=== PATIENT | male | born 1940 | race Caucasian/White ===

== ENCOUNTER 2019-10-12 12:12 | Day surgery (SDC) | payer MEDICARE, OTHER ==
[~2019-10-12] VITALS: Ht 180.3 cm; Wt 90.1 kg
[~2019-10-12 12:12] MED LIST: ASCO500 PO; ATOR20 PO; Aspirin EC81 MG PO; DOCU100 PO; FAMO20 PO; FEBU40TA PO; FERSU300 PO; Fish Oil 10001000 MG PO; HYDSUL200 PO; LEVSOD50 PO; LEVSOD75 PO; LOSA25 PO; MIRALAX17 GM PO; NIFE60ER PO; Vitamin D2000 UNIT PO
== END 2019-10-12 14:49 | disposition home or self-care (01) ==
LOC: ORSCSDS 12:12
PROVIDERS: Internal Medicine Gastroenterology
PROC: 0DBN8ZX Excision of Sigmoid Colon, Via Natural or Artificial Opening Endoscopic, Diagnostic (ICD-10-PCS; principal; 2019-10-12 13:45)
PROC: 0DBK8ZX Excision of Ascending Colon, Via Natural or Artificial Opening Endoscopic, Diagnostic (ICD-10-PCS; principal; 2019-10-12 13:45)
DX: Z12.11 Encounter for screening for malignant neoplasm of colon (principal); Z86.010 Personal history of colon polyps; D12.5 Benign neoplasm of sigmoid colon; D12.2 Benign neoplasm of ascending colon; K57.30 Diverticulosis of large intestine without perforation or abscess without bleeding; D64.9 Anemia, unspecified; I12.9 Hypertensive chronic kidney disease with stage 1 through stage 4 chronic kidney disease, or unspecified chronic kidney disease; N18.3 Chronic kidney disease, stage 3 (moderate); Z79.82 Long term (current) use of aspirin; Z79.899 Other long term (current) drug therapy
CPT/HCPCS: 88305; J2704; J7120

== ENCOUNTER → 2019-12-11 | Outpatient (CLI) | payer MEDICARE, OTHER | END | disposition home or self-care (01) | LOC: LAB SHORT 09:18 → LAB EV 09:18 | DX: N39.0 Urinary tract infection, site not specified (principal) | CPT/HCPCS: 87077; 87086; 87186 ==

== ENCOUNTER 2020-02-12 06:56 | Day surgery (SDC) | payer MEDICARE, OTHER ==
[~2020-02-12] VITALS: Ht 180.3 cm; Wt 89.4 kg
--- NOTE | 2020-02-12 07:56 | NUR ---
History, Chart, Medications and Allergies reviewed before start of procedure. Patient confirms NPO status and agrees with scheduled surgery.
--- NOTE | 2020-02-12 07:59 | NUR ---
PATIENT STATES HE LEFT HIS HEARING AIDS AT HOME.
--- NOTE | 2020-02-12 12:49 | NUR ---
PT DRESSINGS TIMES 3 TO ABDOMEN CDI. PT SAT UP IN [facility] [place] EWITH MINIMAL HELP AND PROVIDED FOOD AND FLUID, PAIN PILL FOR RIDE HOME.
--- NOTE | 2020-02-12 13:19 | NUR ---
Patient up to Ambulate independently. Gait steady. Dressing to procedure site clean, dry, intact with no visible drainage, swelling, erythema or bruising noted. Discharge instructions reviewed with patient. Patient verbalizes understanding. Copy given to patient to take home. Patient States Post-Procedure ride home has been arranged. Discharged via wheelchair to private car for ride home. ALL BELONINGS RETURNED TO PATIENT. SIGNED FOR RIDE HOME.
== END 2020-02-12 22:41 | disposition home or self-care (01) ==
LOC: ORSCMMR 06:56 → ORD 08:30 → ORSCMMR 22:41
PROVIDERS: Surgery
PROC: 0YU54JZ Supplement Right Inguinal Region with Synthetic Substitute, Percutaneous Endoscopic Approach (ICD-10-PCS; principal; 2020-02-12 08:30)
PROC: 8E0W4CZ Robotic Assisted Procedure of Trunk Region, Percutaneous Endoscopic Approach (ICD-10-PCS; principal; 2020-02-12 08:30)
DX: K40.90 Unilateral inguinal hernia, without obstruction or gangrene, not specified as recurrent (principal); I10 Essential (primary) hypertension; E78.5 Hyperlipidemia, unspecified; N18.3 Chronic kidney disease, stage 3 (moderate); E03.9 Hypothyroidism, unspecified; Z79.899 Other long term (current) drug therapy; Z79.82 Long term (current) use of aspirin
CPT/HCPCS: 49650; S2900; A9270-GY; C1781; J0690; J1100; J2405; J2704; J3010; J7120

== ENCOUNTER 2022-10-26 22:04 | Emergency (ER) | payer MEDICARE, BC ==
[~2022-10-26] VITALS: Ht 180.3 cm; Wt 87.1 kg
[2022-10-26 22:26] LABS: BASOPHILS ABSOLUTE AUTO 0.03 K/mm3 (0.00-0.23); BASOPHILS PERCENT AUTO 1 % (0-2); EOSINOPHILS ABSOLUTE AUTO 0.13 K/mm3 (0.00-0.68); EOSINOPHILS PERCENT AUTO 3 % (0-6); Hemoglobin 13.2 g/dL (13.5-17.5); IMMATURE GRAN ABSOLUTE AUTO 0.01 K/mm3 (0.00-0.10); IMMATURE GRAN PERCENT AUTO 0 % (0-1); LYMPHOCYTES ABSOLUTE AUTO 0.72 K/mm3 (0.84-5.20); LYMPHOCYTES PERCENT AUTO 15 % (21-46); MONOCYTES ABSOLUTE AUTO 0.53 K/mm3 (0.16-1.47); MONOCYTES PERCENT AUTO 11 % (4-13); Mean Corpuscular HGB 28.7 pg (26.0-34.0); Mean Corpuscular HGB Conc 33.8 g/dL (31.5-36.5); Mean Corpuscular Volume 85 fL (80-100); Mean Platelet Volume 11.6 fL (9.1-12.4); NEUTROPHILS ABSOLUTE AUTO 3.34 K/mm3 (1.96-9.15); NEUTROPHILS PERCENT AUTO 70 % (41-73); Platelet Count 134 K/mm3 (150-400); RDW Coefficient Variation 13.7 % (11.7-14.2); RDW Standard Deviation 42.7 fL (35.1-46.3); White Blood Cell Count 4.76 K/mm3 (4.00-11.30)
[2022-10-26 22:45] LABS: Albumin, Blood 3.5 g/dL (3.4-5.0); Albumin/Globulin Ratio 0.8 (0.8-1.8); Bilirubin, Total 0.6 mg/dL (0.1-1.0); Bun/Creatinine Ratio 16.7 (12.0-20.0); Calcium, Blood 9.4 mg/dL (8.5-10.1); Creatinine, Blood 1.92 mg/dL (0.60-1.20); Globulin, Blood 4.3 g/dL (2.2-4.0); Potassium, Blood 3.7 mmol/L (3.5-5.5); Total Protein, Blood 7.8 g/dL (6.4-8.2)
== END 2022-10-27 02:58 | disposition short-term general hospital (02) ==
LOC: ER 22:04
PROVIDERS: Student in an Organized Health Care Education/Training Program
DX: K44.9 Diaphragmatic hernia without obstruction or gangrene (principal); K56.2 Volvulus; Z79.899 Other long term (current) drug therapy; Z79.890 Hormone replacement therapy; Z79.82 Long term (current) use of aspirin; Z87.891 Personal history of nicotine dependence
CPT/HCPCS: 36415; 71045; 71275; 74175; 80053; 83880; 84484; 85025; 93005; 93010; 96374-59; 96375-59; 99285-25; A9270; J1170; J2270; J2405; J2550; Q9967

== ENCOUNTER 2023-02-12 07:00 | Day surgery (SDC) | payer MEDICARE, BC ==
[~2023-02-12] VITALS: Ht 180.3 cm; Wt 82.0 kg
[2023-02-12 07:35] VITALS: BP 150/99
[2023-02-12 09:30] VITALS: BP 149/105
--- NOTE | 2023-02-12 09:33 | NUR ---
pt arrives back to hc s/p ivc filter removal. pt alert and oriented, up in recliner, vss. RIJ site wnl, no hematoma, no bleeding. manual pressure till hemostasis. cloth dot in place. pt. called to update. snack provided for patient.
[2023-02-12 09:45] VITALS: BP 161/108
[2023-02-12 10:00] VITALS: BP 109/81
[2023-02-12 10:30] VITALS: BP 107/90
--- NOTE | 2023-02-12 10:36 | NUR ---
Site oozing, Pressure held to site, SABRINA Woodward tech in to place omer and tegaderm to location. no crepitus noted, not hematoma at this time.
[2023-02-12 11:30] VITALS: BP 133/108
--- NOTE | 2023-02-12 12:15 | NUR ---
ASSISTED PT TO GET DRESSED AND AMBULATE AROUND ROOM. SITE REMAINS STABLE. DISCHARGE INSTRUCTIONS REVIEWED IN DETAIL. PT. HAD NO FURTHER QUESTIONS. IV REMOVED AND ALL BELONGINGS WITH PT.
--- NOTE | 2023-02-12 12:30 | NUR ---
PT TAKEN VIA WHEEL CHAIR TO EXIT, PT JUNIOR PICKED PT UP. SITE STABLE UPON DEPARTERE.
== END 2023-02-12 11:45 | disposition home or self-care (01) ==
LOC: MHTC 07:00
DX: Z45.89 Encounter for adjustment and management of other implanted devices (principal); I82.4Y3 Acute embolism and thrombosis of unspecified deep veins of proximal lower extremity, bilateral; I82.563 Chronic embolism and thrombosis of calf muscular vein, bilateral; I71.23 Aneurysm of the descending thoracic aorta, without rupture; I72.3 Aneurysm of iliac artery; I10 Essential (primary) hypertension; Z95.828 Presence of other vascular implants and grafts; Z79.82 Long term (current) use of aspirin
CPT/HCPCS: 37193; 76937; 99152; C1769; C1773; C1894; J1644; J2250; J2405; J3010; J7030; J7040

== ENCOUNTER → 2023-03-28 | Outpatient (CLI) | payer MEDICARE, BC | LOC: LAB 11:10 → LAB SHORT 11:10 | DX: C49.0 Malignant neoplasm of connective and soft tissue of head, face and neck (principal); D04.62 Carcinoma in situ of skin of left upper limb, including shoulder | CPT/HCPCS: 88305 ==

== ENCOUNTER → 2023-04-09 | Outpatient (CLI) | payer MEDICARE, BC | LOC: PLD 15:09 → LAB SHORT 15:09 | DX: C44.222 Squamous cell carcinoma of skin of right ear and external auricular canal (principal) | CPT/HCPCS: 88305 ==

== ENCOUNTER → 2023-06-18 | Outpatient (CLI) | payer MEDICARE, BC | END | disposition home or self-care (01) | LOC: PLD 08:07 → LAB SHORT 08:07 | DX: D48.5 Neoplasm of uncertain behavior of skin (principal) | CPT/HCPCS: 88305 ==

== ENCOUNTER 2023-08-04 16:10 | Inpatient (IN) | payer MEDICARE, BC ==
[~2023-08-04] VITALS: Ht 180.3 cm; Wt 85.9 kg
[2023-08-04 16:48] LABS: BASOPHILS ABSOLUTE AUTO 0.03 K/mm3 (0.00-0.23); BASOPHILS PERCENT AUTO 0 % (0-2); EOSINOPHILS ABSOLUTE AUTO 0.01 K/mm3 (0.00-0.68); EOSINOPHILS PERCENT AUTO 0 % (0-6); Hematocrit 35.1 % (37.0-53.0); Hemoglobin 11.7 g/dL (13.5-17.5); IMMATURE GRAN ABSOLUTE AUTO 0.06 K/mm3 (0.00-0.10); IMMATURE GRAN PERCENT AUTO 1 % (0-1); LYMPHOCYTES ABSOLUTE AUTO 0.49 K/mm3 (0.84-5.20); LYMPHOCYTES PERCENT AUTO 5 % (21-46); MONOCYTES PERCENT AUTO 13 % (4-13); Mean Corpuscular HGB 28.6 pg (26.0-34.0); Mean Corpuscular HGB Conc 33.3 g/dL (31.5-36.5); Mean Corpuscular Volume 86 fL (80-100); NEUTROPHILS PERCENT AUTO 81 % (41-73); Platelet Count 118 K/mm3 (150-400); RDW Coefficient Variation 14.3 % (11.7-14.2); RDW Standard Deviation 44.3 fL (35.1-46.3); Red Blood Cell Count 4.09 M/mm3 (4.30-5.90); White Blood Cell Count 10.69 K/mm3 (4.00-11.30)
[2023-08-04 17:16] LABS: Albumin, Blood 2.7 g/dL (3.4-5.0); Albumin/Globulin Ratio 0.6 (0.8-1.8); Bilirubin, Total 1.2 mg/dL (0.1-1.0); Bun/Creatinine Ratio 21.5 (12.0-20.0); Creatinine, Blood 2.51 mg/dL (0.60-1.20); Globulin, Blood 4.7 g/dL (2.2-4.0); Potassium, Blood 4.3 mmol/L (3.5-5.5); Total Protein, Blood 7.4 g/dL (6.4-8.2)
[2023-08-04 17:22] LABS: Base Excess Venous -0.3 mmol/L; Bicarbonate Venous 24.4 mmol/L (24.0-30.0); PCO2 Venous 32.1 mmHg (38-42); pH Blood Venous 7.47 (7.34-7.37)
[2023-08-04 18:04] LABS: Influenza A, PCR NEGATIVE (NEGATIVE); Influenza B, PCR NEGATIVE (NEGATIVE); Resp Syncytial Virus, PCR NEGATIVE (NEGATIVE); SARS-Cov-2 (COVID-19) PCR, MMC NEGATIVE (NEGATIVE)
[2023-08-04] MEDS ORDERED: EUTHYROX50 MC1 PO (20:47)
[2023-08-04 21:06] LABS: Thyroid Stimulating Hormone 3.63 uIU/mL (0.360-4.800)
[2023-08-04 21:59] VITALS: BP 113/79
[2023-08-04] MEDS ORDERED: PANT20 PO (22:03)
[2023-08-04 22:55] VITALS: BP 124/75
--- NOTE | 2023-08-04 23:16 | NUR ---
ARRIVAL TO UNIT AFTER RECEIVING REPORT FROM CHARITO RN IN ED, PATIENT ARRIVED TO UNIT VIA GURNEY AT APPROX 2140. PATIENT ABLE TO STAND TO TRANSFER TO BED WITH MINIMAL ASSIST. IS ALERT AND ORIENTED X4. COOPERATIVE WITH CARE. ABLE TO COMMUNICATE NEEDS. AMBULATED TO BEDSIDE COMMODE FOR BM X1. WAS LARGE, LOOSE. ONCE BACK IN BED, PATIENT EXPERIENCED X1 EXTRA LARGE, LOOSE INCONTINENT BM. BEDBATH, LINEN CHANGE PERFORMED. ATTENDS PLACED. STOOL SAMPLE COLLECTED PER PROTOCOL, AWAITING RESULTS. TELEMETRY SHOWING SINUS TACH 110's-120's. RATE INCREASE TO 120's-130's WITH MOBILITY. BP STABLE. DENIES CHEST PAIN OR PRESSURE. ARRIVED TO UNIT ON 12L VIA OXIMIZER, SATS 88-92%. PATIENT TACHYPNEIC, RR 25-35 AT REST. SWITCHED TO CPAP WITH 5L BLEED IN, SATS >92%. RR 20-30, CONTINUED SHORTNESS OF BREATH AT REST NOTED. PATIENT DID NOT VOID DURING BM's. RECEIVED IV BUMEX IN ED PRIOR TO ARRIVAL. BLADDER SCAN PERFORMED >500 NOTED. ENCOURAGED PATIENT TO VOID, ONLY ABLE TO VOID 100ML. STRAIGHT CATH PROCEDURE PERFORMED BY THIS RN. 400ML OUT. CALL LIGHT IN REACH. UPDATE GIVEN TO , JUNIOR, BY THIS RN.
[2023-08-05] VITALS (9 sets, daily range): BP systolic 104–131; BP diastolic 67–88
[2023-08-05 00:41] LABS: C DIFFICILE DNA NEGATIVE (Negative)
--- NOTE | 2023-08-05 04:52 | NUR ---
TELEMETRY CONTINUING TO SHOW SINUS TACH. PATIENT's HEART RATE BEGINNING TO TREND UP FROM 110's-120's TO 120's-130's, WITH INTERMITTENT EPISODES OF INCREASE TO 140's. ONE EPISODE OF INCREASE TO 150's. PATIENT ASYMPTOMATIC DURING INCREASES. DENIES CHEST PAIN OR PRESSURE. BP STABLE. THIS RN CONTACTED MD CAICEDO WITH UPDATE. RECEIVED ORDER FOR EKG. MD CAICEOD TO BEDSIDE TO REVIEW EKG. NO NEW ORDERS AT THIS TIME.
--- NOTE | 2023-08-05 05:35 | NUR ---
SHIFT SUMMARY PATIENT IS CURRENTLY SITTING UP IN CHAIR WATCHING TV. TELEMETRY CONTINUING TO SHOW SINUS TACH, SUSTAINING 120's WITH FREQUENT INCREASE TO 130's-150's. MD AWARE. SEE PREVIOUS NOTE. BP STABLE THROUGHOUT, SBP 120's. DENIES CHEST PAIN OR PRESSURE. ON CPAP THROUGHOUT SHIFT. IS CURRENTLY ON 5L VIA OXIMIZER, SATS >92%, WHILE IN CHAIR. TACHYPNEIC THROUGHOUT SHIFT, RR 30's. PATIENT ABLE TO VOID FOLLOWING STRAIGHT CATH PROCEDURE. USES URINAL WITH MINIMAL ASSIST. NO FURTHER LOOSE BM's SINCE ASSUMPTION OF CARE. CALL LIGHT IN REACH. WILL REPORT TO ONCOMING RN.
[2023-08-05 05:42] LABS: Bun/Creatinine Ratio 22.8 (12.0-20.0); Calcium, Blood 8.4 mg/dL (8.5-10.1); Creatinine, Blood 2.41 mg/dL (0.60-1.20)
--- NOTE | 2023-08-05 06:07 | NUR ---
THIS RN RECEIVED CALL FROM LAB AT APPROX 0603 FOR A CRITICAL TROPONIN [id number]. NO CHANGE IN PATIENT CONDITION ASSESSED. CONTINUING TO REPORT NO CHEST PAIN OR PRESSURE. MD DEXTER NOTIFIED. NO NEW ORDERS RECEIVED.
--- NOTE | 2023-08-05 13:08 | NUR ---
Upon receiving a referral for spiritual care, I visited the patient. He tells me about his medical problems and his frustrations that his spouse can't visit him today due to a faulty garage door. He also explains about his [employer] roverto. He attends [facility] in [place] and finds comfort and peace in his prayers. I listen empathically and provide a calming presence and prayer. Patient responded well and shows signs of an elevated mood. He welcomes me to return anytime that I can.
--- NOTE | 2023-08-05 16:21 | NUR ---
shift summary no acute changes this shift. Pt a&ox4, [place] sp02>90% on 6l oxymizer while awake. desats to mid 80's occasionally while sleeping. Pt noted to breath through mouth. Pt refuses to wear cpap. Tachypenic, see vitals. Telemetry shows sinus tach, hr 100's-120's mostly. Echo in room this am, see results. Pt used urinal to void, bumex given per emar. Pt up in chair for much of shift. denies pain. MD Sharpe in room this am to discuss plan. Pt had visitor this afternoon for a few hours. Call placed to [facility] for current records. Still awaiting fax. Call light in reach. Pt sleeping in room.
--- NOTE | 2023-08-05 21:23 | NUR ---
ASSUMPTION OF CARE AFTER RECEIVING REPORT FROM BRITTON OREILLY, THIS RN ASSUMED CARE AT APPROX 1915. PATIENT ALERT, SITTING UP IN BED WITH NASAL OXYMIZER IN PLACE. IS ALERT AND ORIENTED X4. COOPERATIVE WITH CARE. IS [place], USES BILATERAL HEARING AIDES. ABLE TO COMMUNICATE NEEDS EFFECTIVELY. RECEPTIVE TO EDUCATION. TELEMETRY SHOWING SINUS TACH 110's-120's AT REST. WITH NOTED RATE INCREASE TO 130's-140's WITH ACTIVITY. PATIENT IS ASYMPTOMATIC OF INCREASED RATE. REPORTS NO CHEST PAIN OR PRESSURE. BP STABLE. ON 8L VIA NASAL OXYMIZER, SATS >92% WHILE AWAKE. PATIENT DOES DESAT TO 88-92% WHILE SLEEPING. IS DECLINING THE USE OF CPAP. HEAD OF BED ELEVATED TO 45 DEGREES. TACHYPNEIC AT REST, RR 22-30. MILDLY ELEVATED TEMPERATURE 99.8. THIS RN ADMINISTERED PO TYLENOL FOR BOTH ELEVATED TEMPERATURE AND REPORTED LOWER BACK PAIN 2/10. EXTRA BLANKETS REMOVED. TEMPERATURE DECREASE TO 99.0. REPORTED RELIEF OF LOWER BACK PAIN, 1/. STRAIGHT CATH PROCEDURE PERFORMED BY BRITTON OREILLY PRIOR TO ASSUMPTION OF CARE FOR URINARY RETENTION. PATIENT VOIDING SMALL AMOUNTS AT A TIME, USES URINAL INDEPENDENTLY. WILL CONTINUE TO MONITOR FOR RETENTION. CALL LIGHT IN REACH.
[2023-08-06 02:20] VITALS: BP 120/81
[2023-08-06 04:27] LABS: BASOPHILS ABSOLUTE AUTO 0.03 K/mm3 (0.00-0.23); BASOPHILS PERCENT AUTO 0 % (0-2); EOSINOPHILS ABSOLUTE AUTO 0.07 K/mm3 (0.00-0.68); EOSINOPHILS PERCENT AUTO 1 % (0-6); Hematocrit 31.1 % (37.0-53.0); Hemoglobin 10.4 g/dL (13.5-17.5); IMMATURE GRAN ABSOLUTE AUTO 0.07 K/mm3 (0.00-0.10); IMMATURE GRAN PERCENT AUTO 1 % (0-1); LYMPHOCYTES ABSOLUTE AUTO 0.56 K/mm3 (0.84-5.20); LYMPHOCYTES PERCENT AUTO 6 % (21-46); MONOCYTES ABSOLUTE AUTO 1.11 K/mm3 (0.16-1.47); MONOCYTES PERCENT AUTO 12 % (4-13); Mean Corpuscular HGB 28.6 pg (26.0-34.0); Mean Corpuscular HGB Conc 33.4 g/dL (31.5-36.5); Mean Corpuscular Volume 85 fL (80-100); NEUTROPHILS ABSOLUTE AUTO 7.81 K/mm3 (1.96-9.15); NEUTROPHILS PERCENT AUTO 81 % (41-73); Platelet Count 124 K/mm3 (150-400); RDW Coefficient Variation 14.6 % (11.7-14.2); RDW Standard Deviation 45.1 fL (35.1-46.3); Red Blood Cell Count 3.64 M/mm3 (4.30-5.90); White Blood Cell Count 9.65 K/mm3 (4.00-11.30)
[2023-08-06 04:58] LABS: Bun/Creatinine Ratio 26.6 (12.0-20.0); Calcium, Blood 8.2 mg/dL (8.5-10.1); Creatinine, Blood 2.44 mg/dL (0.60-1.20); Potassium, Blood 3.8 mmol/L (3.5-5.5)
--- NOTE | 2023-08-06 04:59 | NUR ---
SHIFT SUMMARY NO ACUTE CHANGES SINCE PREVIOUS ASSUMPTION OF CARE NOTE. PATIENT SLEPT THROUGHOUT SHIFT, EASILY AROUSABLE TO VERBAL STIMULI. TELEMETRY SHOWING SINUS TACH 110's-120's WITH INTERMITTENT INCREASES TO 130's. BP STABLE. NOW ON 5L VIA NASAL OXYMIZER. SATS REMAIN 89-94% THROUGHOUT NIGHT WHILE SLEEPING WITHOUT CPAP. HEAD OF BED REMAINS ELEVATED. RR 22-26. REMAINS AFEBRILE FOLLOWING TYLENOL ADMINISTRATION FOR ELEVATED TEMPERATURE AT BEGINNING OF SHIFT. CONTINUING TO VOID SMALL AMOUNTS AT A TIME. BLADDER SCAN PERFORMED <400ML. NO BM THIS SHIFT. CALL LIGHT IN REACH. WILL REPORT TO ONCOMING RN.
--- NOTE | 2023-08-06 05:24 | NUR ---
AT APPROX 0520, THIS RN RECEIVED A CALL FROM LAB WITH A CRITICAL VALUE, TROPONIN [id number]. DISCUSSED LAB RESULT WITH MANAGER STRATEGIC ALLIANCESAFIA BECK MD NOT NOTIFIED IS TRENDING DOWN FROM PREVIOUS RESULTS.
[2023-08-06 05:25] LABS: Mean Platelet Volume 13.7 fL (9.1-12.4)
[2023-08-06 07:15] VITALS: BP 135/78
--- NOTE | 2023-08-06 07:18 | NUR ---
PHONE CALL TO DR. LOCKHART TO DISCUSS NEW AFIB. PER AGRICULTURAL RESEARCH TECHNOLOGIST AFIB STARTED AT APPROX 0615 THIS AM.
[2023-08-06 09:44] LABS: Percent Saturation 17.6 % (20.0-50.0)
[2023-08-06 11:56] VITALS: BP 134/86
[2023-08-06 16:00] VITALS: BP 132/87
--- NOTE | 2023-08-06 17:44 | NUR ---
SHIFT SUMMARY; ASSUMED CARE AT 0700. A/A/OX4. REPOSITIONS SELF ON BED, USING URNIAL AT BEDSIDE. SBA TO RECLINER CHAIR DURING SHIFT. SPOKE WITH DR. LOCKHART IN AM ABOUT NEW AFIB, SEE PREVIOUS NOTE. INTERMITANT AFIB DURNG SHIFT. COREG STARTED TODAY. VSS, O2 TITRATED DOWN TO 3L DURING SHIFT, MAINTAINING 02 SATS >94%. PLEASANT AND COOPERATIVE WITH CARE. WILL CONTINUE TOMONITOR AND TREAT UNTIL CHANGE OF SHIFT.
[2023-08-06 19:47] VITALS: BP 108/73
--- NOTE | 2023-08-06 20:45 | NUR ---
ASSUMPTION OF CARE AFTER RECEIVING REPORT FROM WING OREILLY, THIS RN ASSUMED CARE AT APPROX 1915. PATIENT ALERT, SITTING UP IN BED WATCHING TV. IS ALERT AND ORIENTED X4. IS [place]. ABLE TO COMMUNICATE NEEDS EFFECTIVELY. RECEPTIVE TO EDUCATION, ASKS QUESTIONS FREQUENTLY. TELEMETRY SHOWING SINUS WITH PVC's 90's-100's. DENIES CHEST PAIN OR PRESSURE. BP SOFT, SBP 100's-110's. MAP >65. IS CURRENTLY ON 2L VIA NASAL OXYMIZER, SATS 90-93%. PLAN TO SWITCH TO NASAL CANNULA IF TOLERATED, PATIENT DOES DESAT, 86-88%, WHILE SLEEPING. DECLINING USE OF CPAP. HEAD OF BED ELEVATED >30 DEGREES. TACHYPNEIC AT REST, RR 22-30. USES URINAL AT BEDSIDE INDEPENDENTLY. IS A SBA TO BSC OR CHAIR. IV ABX INFUSING PER EMAR. CALL LIGHT IN REACH.
[2023-08-07 00:13] VITALS: BP 116/88
[2023-08-07 02:38] VITALS: BP 114/86
[2023-08-07 04:01] LABS: BASOPHILS ABSOLUTE AUTO 0.03 K/mm3 (0.00-0.23); BASOPHILS PERCENT AUTO 0 % (0-2); EOSINOPHILS ABSOLUTE AUTO 0.09 K/mm3 (0.00-0.68); EOSINOPHILS PERCENT AUTO 1 % (0-6); Hematocrit 30.2 % (37.0-53.0); IMMATURE GRAN ABSOLUTE AUTO 0.05 K/mm3 (0.00-0.10); IMMATURE GRAN PERCENT AUTO 1 % (0-1); LYMPHOCYTES ABSOLUTE AUTO 0.56 K/mm3 (0.84-5.20); LYMPHOCYTES PERCENT AUTO 7 % (21-46); MONOCYTES PERCENT AUTO 12 % (4-13); Mean Corpuscular HGB 28.3 pg (26.0-34.0); Mean Corpuscular HGB Conc 33.1 g/dL (31.5-36.5); Mean Corpuscular Volume 86 fL (80-100); Mean Platelet Volume 12.9 fL (9.1-12.4); NEUTROPHILS ABSOLUTE AUTO 6.13 K/mm3 (1.96-9.15); NEUTROPHILS PERCENT AUTO 79 % (41-73); Platelet Count 156 K/mm3 (150-400); RDW Coefficient Variation 14.5 % (11.7-14.2); Red Blood Cell Count 3.53 M/mm3 (4.30-5.90); White Blood Cell Count 7.76 K/mm3 (4.00-11.30)
[2023-08-07 04:17] LABS: Bun/Creatinine Ratio 25.7 (12.0-20.0); Calcium, Blood 8.1 mg/dL (8.5-10.1); Creatinine, Blood 2.26 mg/dL (0.60-1.20); Potassium, Blood 3.7 mmol/L (3.5-5.5)
--- NOTE | 2023-08-07 04:42 | NUR ---
SHIFT SUMMARY NO ACUTE CHANGES SINCE PREVIOUS ASSUMPTION OF CARE NOTE. PATIENT SLEPT INTERMITTENTLY THROUGHOUT SHIFT. EASILY AROUSABLE TO VERBAL STIMULI. TELEMETRY SHOWING SINUS W/ PVC's 90's. BP STABLE. ABLE TO TOLERATE 2L VIA NASAL CANNULA THROUGHOUT SHIFT, SATS 90-94%. VOIDING. NO BM THIS SHIFT. ABLE TO REPOSITION HIMSELF IN BED. CALL LIGHT IN REACH. WILL REPORT TO ONCOMING RN.
[2023-08-07 07:15] VITALS: BP 101/69
[2023-08-07 10:32] LABS: Free Thyroxine 1.13 ng/dL (0.70-1.60); Thyroid Stimulating Hormone 3.08 uIU/mL (0.360-4.800)
[2023-08-07 11:24] VITALS: BP 109/70
--- NOTE | 2023-08-07 15:41 | NUR ---
Patient is lying in bed and alert. He tells me about how he is coping currently and how he has gone through challenging cicumstances in the past. Finding the positives and finding humor have been very helpful to him. He also talks about his inner belief that he will come out the other side well and that whatever he faces he will work through it in a step by step, minute by minute fashion. I provide therapeutic listening, levity and a calming presence. Patient repsonded well and showed signs of an elevated mood.
[2023-08-07 16:36] VITALS: BP 122/87
--- NOTE | 2023-08-07 18:30 | NUR ---
SHIFT SUMMARY; ASSUMED CARE AT 0700. A/A/OX4. REPOSITIONS SELF IN BED, ASSISTED TO RECLINER DURING SHIFT AT TIMES. REMAINED IN SINUS RYTHM TODAY WITH HR 80;S. 02 2L VIA NC WITH SATS >92%. USING URNIAL AT BEDSIDE. 1500ML FR ADDED TODAY, PT EDUCATED. VSS, NO ACUTE MEDICAL CHANGES, WILL CONTINUE TO MONITOR UNTIL CHANGE OF SHIFT.
[2023-08-07 19:40] VITALS: BP 126/81
[2023-08-08 00:36] VITALS: BP 122/87
[2023-08-08 04:48] VITALS: BP 126/89
[2023-08-08 07:44] VITALS: BP 122/70
[2023-08-08 11:45] VITALS: BP 101/73
[2023-08-08 16:34] VITALS: BP 114/71
[2023-08-08] MEDS ORDERED: CARV6.25 PO (18:13)
[2023-08-08] MEDS ORDERED: JARDIANCE10 MG PO (18:14)
[2023-08-08] MEDS ORDERED: TORSE20 PO (18:15)
== END 2023-08-08 18:30 | disposition home or self-care (01) | DRG 280 ==
LOC: ER 16:10 → PCU 19:59
PROVIDERS: Emergency Medicine; Internal Medicine; Student in an Organized Health Care Education/Training Program; ADMIT Internal Medicine
DX: I13.0 Hypertensive heart and chronic kidney disease with heart failure and stage 1 through stage 4 chronic kidney disease, or unspecified chronic kidney disease (principal); I21.A1 Myocardial infarction type 2; I50.43 Acute on chronic combined systolic (congestive) and diastolic (congestive) heart failure; J96.01 Acute respiratory failure with hypoxia; N17.9 Acute kidney failure, unspecified; N18.4 Chronic kidney disease, stage 4 (severe); E87.3 Alkalosis; I48.0 Paroxysmal atrial fibrillation; Z66 Do not resuscitate; M32.9 Systemic lupus erythematosus, unspecified; E03.9 Hypothyroidism, unspecified; D63.1 Anemia in chronic kidney disease; I25.10 Atherosclerotic heart disease of native coronary artery without angina pectoris; E78.5 Hyperlipidemia, unspecified; M10.9 Gout, unspecified; K44.9 Diaphragmatic hernia without obstruction or gangrene; Z99.81 Dependence on supplemental oxygen; Z86.718 Personal history of other venous thrombosis and embolism; Z79.01 Long term (current) use of anticoagulants; Z79.890 Hormone replacement therapy; Z79.82 Long term (current) use of aspirin; Z79.899 Other long term (current) drug therapy; Z98.890 Other specified postprocedural states; Z87.891 Personal history of nicotine dependence; Z11.52 Encounter for screening for COVID-19
CPT/HCPCS: 0241U; 36415; 71045; 71260; 80048; 80053; 82728; 82803; 83540; 83550; 83605; 83880; 84145; 84439; 84443; 84484; 85025; 87493; 93005; 93010; 94660; 94761; 94762; 96360; 99285-25; A9270; C8929; C9113; J0456; J0696; J1644; J1750; J7030; J7050; Q9957; Q9967

== ENCOUNTER → 2023-08-14 | Outpatient (CLI) | payer MEDICARE, BC ==
[~2023-08-14] MED LIST changes: +CARV6.25 PO; +EUTHYROX50 MC1 PO; +JARDIANCE10 MG PO; +PANT20 PO; +TORSE20 PO
[2023-08-14 14:22] LABS: BASOPHILS ABSOLUTE AUTO 0.04 K/mm3 (0.00-0.23); BASOPHILS PERCENT AUTO 1 % (0-2); EOSINOPHILS PERCENT AUTO 3 % (0-6); Hematocrit 35.8 % (37.0-53.0); Hemoglobin 11.4 g/dL (13.5-17.5); IMMATURE GRAN ABSOLUTE AUTO 0.09 K/mm3 (0.00-0.10); IMMATURE GRAN PERCENT AUTO 1 % (0-1); LYMPHOCYTES ABSOLUTE AUTO 0.59 K/mm3 (0.84-5.20); LYMPHOCYTES PERCENT AUTO 8 % (21-46); MONOCYTES ABSOLUTE AUTO 0.86 K/mm3 (0.16-1.47); MONOCYTES PERCENT AUTO 12 % (4-13); Mean Corpuscular HGB 28.4 pg (26.0-34.0); Mean Corpuscular HGB Conc 31.8 g/dL (31.5-36.5); Mean Corpuscular Volume 89 fL (80-100); NEUTROPHILS ABSOLUTE AUTO 5.24 K/mm3 (1.96-9.15); NEUTROPHILS PERCENT AUTO 75 % (41-73); Platelet Count 345 K/mm3 (150-400); RDW Coefficient Variation 14.6 % (11.7-14.2); RDW Standard Deviation 47.3 fL (35.1-46.3); Red Blood Cell Count 4.01 M/mm3 (4.30-5.90); White Blood Cell Count 7.02 K/mm3 (4.00-11.30)
[2023-08-14 14:30] LABS: Bun/Creatinine Ratio 22.4 (12.0-20.0); Calcium, Blood 8.8 mg/dL (8.5-10.1); Creatinine, Blood 2.46 mg/dL (0.60-1.20); Potassium, Blood 4.1 mmol/L (3.5-5.5)
== END | disposition home or self-care (01) ==
LOC: LAB 11:50 → LAB SHORT 11:50
PROVIDERS: Internal Medicine
DX: I10 Essential (primary) hypertension (principal); N28.9 Disorder of kidney and ureter, unspecified
CPT/HCPCS: 80048; 83880; 85025

== ENCOUNTER → 2023-10-16 | Outpatient (CLI) | payer MEDICARE, BC ==
[2023-10-16 12:32] LABS: Bun/Creatinine Ratio 32.6 (12.0-20.0); Calcium, Blood 9.5 mg/dL (8.5-10.1); Creatinine, Blood 2.58 mg/dL (0.60-1.20); Potassium, Blood 4.8 mmol/L (3.5-5.5)
== END ==
LOC: LAB SHORT 09:36
PROVIDERS: Internal Medicine
DX: I10 Essential (primary) hypertension (principal)
CPT/HCPCS: 36415; 80048

== ENCOUNTER → 2024-08-03 | Outpatient (CLI) | payer MEDICARE, BC ==
[2024-08-03 13:34] LABS: Protein, Urine Quantitative 25.3 mg/dL (0.0-11.9)
== END | disposition home or self-care (01) ==
LOC: LAB 11:10 → LAB SHORT 11:10
PROVIDERS: Internal Medicine
DX: N28.9 Disorder of kidney and ureter, unspecified (principal); M32.9 Systemic lupus erythematosus, unspecified
CPT/HCPCS: 81050; 84156

== ENCOUNTER 2024-11-12 07:26 | Day surgery (SDC) | payer MEDICARE, OTHER ==
[~2024-11-12] VITALS: Ht 180.3 cm; Wt 79.6 kg
[2024-11-12] MEDS ORDERED: propofoL 50 ML IV ONE (07:48)
[2024-11-12] MEDS ORDERED: Lactated Ringer's 1,000 ML IV ONE ×2 (07:52→08:38)
[2024-11-12] MEDS ORDERED: ENTRESTO 24 MG1 EACH (08:19)
[2024-11-12] MEDS ORDERED: OMEP20ER (08:19)
[2024-11-12] MEDS ORDERED: ELIQUIS2.5 MG (08:19)
[2024-11-12 10:01] VITALS: BP 94/73
== END 2024-11-12 09:55 | disposition home or self-care (01) ==
LOC: ORSCSDS 07:26
PROVIDERS: Internal Medicine Gastroenterology
PROC: 0DBL8ZX Excision of Transverse Colon, Via Natural or Artificial Opening Endoscopic, Diagnostic (ICD-10-PCS; principal; 2024-11-12 09:00)
PROC: 0DBM8ZX Excision of Descending Colon, Via Natural or Artificial Opening Endoscopic, Diagnostic (ICD-10-PCS; principal; 2024-11-12 09:00)
DX: Z12.11 Encounter for screening for malignant neoplasm of colon (principal); D12.3 Benign neoplasm of transverse colon; K63.5 Polyp of colon; K57.30 Diverticulosis of large intestine without perforation or abscess without bleeding; Z86.0101 Personal history of adenomatous and serrated colon polyps; I50.9 Heart failure, unspecified; I12.9 Hypertensive chronic kidney disease with stage 1 through stage 4 chronic kidney disease, or unspecified chronic kidney disease; N18.9 Chronic kidney disease, unspecified; K21.9 Gastro-esophageal reflux disease without esophagitis; E78.00 Pure hypercholesterolemia, unspecified; E03.9 Hypothyroidism, unspecified; Z79.01 Long term (current) use of anticoagulants; Z79.899 Other long term (current) drug therapy; Z87.891 Personal history of nicotine dependence
CPT/HCPCS: 88305; J2704; J7120